=== PATIENT | female | born 1970 | race Hispanic/Latino ===

== ENCOUNTER 2022-01-28 | Inpatient (IN) | payer OTHER ==
[2022-01-28] VITALS: BP 101/68
[~2022-01-28] VITALS: Ht 157.5 cm; Wt 86.0 kg
[~2022-01-28] MED LIST: ALPRAZOLAM0.5 M1 PO; DULCOLAX10 MG RE; LINZESS72 MCG; LISINOP/HCTZ1 TA1 PO; MIRALAX17 GM; MORPHINE SUL15 MG PO; OXYCODONE10 M1 PO; [UNRECOGNIZED DRUG - OTHER] XX
[2022-01-28 04:20] VITALS: BP 129/87
[2022-01-28] MEDS ORDERED: FAMOTIDINE20 M1 PO (07:27)
[2022-01-28] MEDS ORDERED: OXYCODO-APAP1 TA2 PO (07:28)
[2022-01-28] MEDS ORDERED: LISINOPRIL10 MG PO (07:28)
[2022-01-28] MEDS ORDERED: DICYCLOMINE10 MG PO (07:29)
[2022-01-28] MEDS ORDERED: BACLOFEN10 MG PO (07:29)
[2022-01-28] MEDS ORDERED: ZOLPIDEM ER12.5 MG PO (07:30)
[2022-01-28 08:00] VITALS: BP 111/66
[2022-01-28 08:56] LABS: HEMATOCRIT 42.5 % (37.0-47.0); HEMOGLOBIN 13.9 g/dl (12.0-16.0); IMMATURE GRANULOCYTES 0.1 % (0.0-5.0); MEAN CELL VOLUME 97.9 fL CALC (80.0-100.0); MEAN CORPUSCULAR HGB CONC 32.7 g/dL CAL (32.0-36.0); NEUT# 3.88 thou/uL (2.00-7.15); RED BLOOD COUNT 4.34 mill/uL (4.20-5.60); RED CELL DISTRI WIDTH 12.2 % (11.5-15.5)
[2022-01-28 09:42] LABS: ALBUMIN 3.9 g/dL (3.2-5.0); ALKALINE PHOSPHATASE 70 u/l (38-126); AMYLASE 46 u/l (30-110); ANION GAP 9 (6-22 (CALC)); BILIRUBIN, TOTAL 0.7 mg/dL (0.0-1.4); BUN 18 mg/dL (7-17); BUN/CREATININE RATIO 28 (12-20 (CALC)); CARBON DIOXIDE 27 mmol/l (22-30); CHLORIDE 109 mmol/l (95-108); CREATININE 0.6 mg/dL (0.5-1.0); GFR > 60 ML/MIN (>=60 (CALC)); GFR FOR AFR.AMER. > 60 ML/MIN (>=60 (CALC)); LIPASE 53 u/l (23-300); POTASSIUM 4.2 mmol/l (3.5-5.1); SGOT/AST 22 u/l (14-36); SODIUM 141 mmol/l (137-146); TOTAL PROTEIN 6.7 g/dL (6.3-8.2)
[2022-01-28 14:25] VITALS: BP 136/68
[2022-01-28 19:15] VITALS: BP 110/68
[2022-01-29 04:39] VITALS: BP 107/58
[2022-01-29 05:17] LABS: HEMATOCRIT 38.2 % (37.0-47.0); HEMOGLOBIN 12.9 g/dl (12.0-16.0); IMMATURE GRANULOCYTES 0.1 % (0.0-5.0); MEAN CELL VOLUME 96.2 fL CALC (80.0-100.0); MEAN CORPUSCULAR HGB 32.5 pG CALC (26.0-32.0); MEAN CORPUSCULAR HGB CONC 33.8 g/dL CAL (32.0-36.0); NEUT# 3.1 thou/uL (2.00-7.15); RED BLOOD COUNT 3.97 mill/uL (4.20-5.60)
[2022-01-29 05:41] LABS: ANION GAP 9 (6-22 (CALC)); BUN 10 mg/dL (7-17); BUN/CREATININE RATIO 15 (12-20 (CALC)); CARBON DIOXIDE 26 mmol/l (22-30); CHLORIDE 109 mmol/l (95-108); CREATININE 0.6 mg/dL (0.5-1.0); GFR > 60 ML/MIN (>=60 (CALC)); GFR FOR AFR.AMER. > 60 ML/MIN (>=60 (CALC)); POTASSIUM 4.2 mmol/l (3.5-5.1); SODIUM 139 mmol/l (137-146)
[2022-01-29 06:00] VITALS: BP 133/76
[2022-01-29 08:01] VITALS: BP 112/61
[2022-01-29 19:10] VITALS: BP 118/69
[2022-01-30 05:22] LABS: HEMATOCRIT 39.8 % (37.0-47.0); HEMOGLOBIN 13.2 g/dl (12.0-16.0); IMMATURE GRANULOCYTES 0.2 % (0.0-5.0); MEAN CORPUSCULAR HGB 31.5 pG CALC (26.0-32.0); MEAN CORPUSCULAR HGB CONC 33.2 g/dL CAL (32.0-36.0); NEUT# 5.79 thou/uL (2.00-7.15); RED BLOOD COUNT 4.19 mill/uL (4.20-5.60); RED CELL DISTRI WIDTH 11.8 % (11.5-15.5)
[2022-01-30 05:48] VITALS: BP 123/72
[2022-01-30 05:48] LABS: ANION GAP 9 (6-22 (CALC)); BUN 6 mg/dL (7-17); BUN/CREATININE RATIO 12 (12-20 (CALC)); CARBON DIOXIDE 25 mmol/l (22-30); CHLORIDE 108 mmol/l (95-108); CREATININE 0.5 mg/dL (0.5-1.0); GFR > 60 ML/MIN (>=60 (CALC)); GFR FOR AFR.AMER. > 60 ML/MIN (>=60 (CALC)); MAGNESIUM 1.9 mg/dL (1.6-2.3); POTASSIUM 4.1 mmol/l (3.5-5.1); SODIUM 139 mmol/l (137-146)
[2022-01-30 07:18] VITALS: BP 116/63
[2022-01-30 08:00] VITALS: BP 116/63
[2022-01-30 14:25] VITALS: BP 104/52
[2022-01-30 18:54] VITALS: BP 104/54
[2022-01-31 03:36] VITALS: BP 120/74
[2022-01-31 06:26] LABS: HEMATOCRIT 38.6 % (37.0-47.0); HEMOGLOBIN 12.8 g/dl (12.0-16.0); MEAN CORPUSCULAR HGB 31.8 pG CALC (26.0-32.0); MEAN CORPUSCULAR HGB CONC 33.2 g/dL CAL (32.0-36.0); RED BLOOD COUNT 4.02 mill/uL (4.20-5.60)
[2022-01-31 06:45] LABS: ANION GAP 9 (6-22 (CALC)); BUN 9 mg/dL (7-17); BUN/CREATININE RATIO 15 (12-20 (CALC)); CARBON DIOXIDE 27 mmol/l (22-30); CHLORIDE 108 mmol/l (95-108); CREATININE 0.6 mg/dL (0.5-1.0); GFR > 60 ML/MIN (>=60 (CALC)); GFR FOR AFR.AMER. > 60 ML/MIN (>=60 (CALC)); MAGNESIUM 2.1 mg/dL (1.6-2.3); POTASSIUM 4.3 mmol/l (3.5-5.1); SODIUM 140 mmol/l (137-146)
[2022-01-31 07:39] VITALS: BP 135/71
[2022-01-31 08:36] VITALS: BP 135/71
== END 2022-01-31 13:52 | disposition home or self-care (01) | DRG 390 ==
LOC: MS2
PROVIDERS: Hospitalist; Internal Medicine; ADMIT Surgery; ATTEND Surgery
DX: K56.51 Intestinal adhesions [bands], with partial obstruction (principal); I10 Essential (primary) hypertension; F41.9 Anxiety disorder, unspecified; K58.9 Irritable bowel syndrome, unspecified; M54.9 Dorsalgia, unspecified; G89.29 Other chronic pain; Z79.891 Long term (current) use of opiate analgesic; Z85.850 Personal history of malignant neoplasm of thyroid
CPT/HCPCS: J1650; J2060; Q9967; S0164

== ENCOUNTER 2022-10-31 18:00 | Emergency (ER) | payer OTHER ==
[~2022-10-31] VITALS: Ht 157.5 cm; Wt 80.1 kg
[~2022-10-31 18:00] MED LIST changes: +BACLOFEN10 MG PO; +DICYCLOMINE10 MG PO; +FAMOTIDINE20 M1 PO; +LISINOPRIL10 MG PO; +OXYCODO-APAP1 TA2 PO; +ZOLPIDEM ER12.5 MG PO
[2022-10-31] MEDS ORDERED: MICROZIDE PO (19:01)
[2022-10-31] MEDS ORDERED: LEVOTHYROXIN125 MCG PO (19:02)
[2022-10-31 20:20] LABS: BASO% 0.2 % (0-3); EOS% 0.7 % (0-8); HEMATOCRIT 42.5 % (37.0-47.0); HEMOGLOBIN 14.3 g/dl (12.0-16.0); IMMATURE GRANULOCYTES 0.3 % (0.0-5.0); LYMPH% 27.4 % (15-41); MEAN CELL VOLUME 90.8 fL CALC (80.0-100.0); MEAN CORPUSCULAR HGB 30.6 pG CALC (26.0-32.0); MEAN CORPUSCULAR HGB CONC 33.6 g/dL CAL (32.0-36.0); MONO% 6.3 % (2-13); NEUT# 6.82 thou/uL (2.00-7.15); NEUT% 65.1 % (42-76); RED BLOOD COUNT 4.68 mill/uL (4.20-5.60); RED CELL DISTRI WIDTH 11.8 % (11.5-15.5)
[2022-10-31 20:21] LABS: URINE BILIRUBIN - DIPSTICK NEGATIVE (NEGATIVE); URINE BLOOD DIPSTICK NEGATIVE (NEGATIVE); URINE COLOR YELLOW; URINE GLUCOSE - DIPSTICK NEGATIVE (NEGATIVE); URINE KETONE NEGATIVE (NEGATIVE); URINE LEUK ESTERASE NEGATIVE (NEGATIVE); URINE PROTEIN - DIPSTICK NEGATIVE (NEG-TRACE); URINE SPECIFIC GRAVITY 1.015; URINE UROBILINOGEN - DIPSTICK 0.2 E.U./dL (0.2)
[2022-10-31 20:22] LABS: URINE NITRITE - DIPSTICK NEGATIVE (Negative)
[2022-10-31 20:36] LABS: ALBUMIN 4.6 g/dL (3.2-5.0); ALKALINE PHOSPHATASE 121 u/l (38-126); BUN 23 mg/dL (7-17); BUN/CREATININE RATIO 30 (12-20 (CALC)); CARBON DIOXIDE 28 mmol/l (22-30); CHLORIDE 98 mmol/l (95-108); CREATININE 0.8 mg/dL (0.5-1.0); GFR FOR AFR.AMER. > 60 ML/MIN (>=60 (CALC)); GFR OTHER RACES > 60 ML/MIN (>=60 (CALC)); SGOT/AST 24 u/l (14-36); TOTAL PROTEIN 7.8 g/dL (6.3-8.2)
[2022-10-31 20:42] LABS: ANION GAP 10 (6-22 (CALC)); BILIRUBIN, TOTAL 0.3 mg/dL (0.02-1.3); SODIUM 132 mmol/l (137-146)
[2022-10-31 21:30] VITALS: BP 114/63
[2022-10-31 22:06] LABS: TSH, 3RD GENERATION < 0.02 uIU/mL (0.47 - 4.68)
[2022-10-31 22:46] VITALS: BP 114/63
== END 2022-10-31 22:51 | disposition home or self-care (01) | DRG 948 ==
LOC: ED 18:00
PROVIDERS: Emergency Medicine; Family Medicine
DX: R53.1 Weakness (principal); Z20.822 Contact with and (suspected) exposure to COVID-19; I10 Essential (primary) hypertension; Z85.850 Personal history of malignant neoplasm of thyroid

== ENCOUNTER 2024-04-11 10:45 | Emergency (ER) | payer OTHER ==
[2024-04-11] VITALS (12 sets, daily range): BP systolic 94–107; BP diastolic 55–67
[~2024-04-11] VITALS: Ht 160 cm; Wt 81.8 kg
[~2024-04-11 10:45] MED LIST changes: +ALL DAY10 MG PO; +AMBIEN10 MG PO; +CALCIUM/D3600 MG PO; +CYMBALTA60 MG PO; +FAMOTIDINE40 M1 PO; +FLEXERIL5 M1 PO; +LEVOTHYROXIN125 MCG PO; +LEVOTHYROXINE PO; +LIDOCAINE51; +LINZESS290 MCG PO; +LISINOPRIL PO; +METHOCARBAMOL PO; +METHOCARBAMOL500 MG PO; +MICROZIDE PO; +OMEPRAZOLE DR40 MG PO; +OXYCODONE5 M1 PO; +PANTOPRAZOLE SO40 M3 PO; +PROMETHAZINE HY25 M1 PO; +XANAX XR1 MG PO
[2024-04-11] MEDS ORDERED: KETOROLAC TROMETHAMINE 30 MG/ML SDV IV STA (11:33)
[2024-04-11] MEDS ORDERED: ONDANSETRON HCl 4 MG/2 ML SDV IV STA (11:33)
[2024-04-11] MEDS ORDERED: MORPHINE SULFATE 4 MG/ML VIAL IV STA (11:33)
[2024-04-11 12:10] LABS: URINE BILIRUBIN - DIPSTICK Negative (NEGATIVE); URINE BLOOD DIPSTICK Negative (NEGATIVE); URINE GLUCOSE - DIPSTICK Negative (NEGATIVE); URINE KETONE Trace mg/dL (NEGATIVE); URINE LEUK ESTERASE Negative (NEGATIVE); URINE NITRITE - DIPSTICK Negative (Negative); URINE PH 5.5 (4.5-8.0); URINE PROTEIN - DIPSTICK Negative (NEG-TRACE); URINE UROBILINOGEN - DIPSTICK 0.2 E.U./dL (0.2)
[2024-04-11 12:12] LABS: URINE COLOR Yellow
[2024-04-11 12:13] LABS: BASO% 0.2 % (0-3); EOS% 2.1 % (0-8); HEMATOCRIT 41.3 % (37.0-47.0); HEMOGLOBIN 13.6 g/dl (12.0-16.0); IMMATURE GRANULOCYTES 0.1 % (0.0-5.0); LYMPH% 26.1 % (15-41); MEAN CELL VOLUME 92.2 fL CALC (80.0-100.0); MEAN CORPUSCULAR HGB 30.4 pG CALC (26.0-32.0); MEAN CORPUSCULAR HGB CONC 32.9 g/dL CAL (32.0-36.0); MONO% 8.6 % (2-13); NEUT# 5.46 thou/uL (2.00-7.15); NEUT% 62.9 % (42-76); RED BLOOD COUNT 4.48 mill/uL (4.20-5.60); RED CELL DISTRI WIDTH 12.1 % (11.5-15.5)
[2024-04-11 12:35] LABS: ALBUMIN 4.4 g/dL (3.2-5.0); BILIRUBIN, TOTAL 0.7 mg/dL (0.02-1.3); CREATININE 0.7 mg/dL (0.5-1.0); POTASSIUM 3.9 mmol/l (3.5-5.1); TOTAL PROTEIN 7.6 g/dL (6.3-8.2)
[2024-04-11] MEDS ORDERED: MIRALAX17 GM PO (13:07)
== END 2024-04-11 14:09 | disposition home or self-care (01) | DRG 392 ==
LOC: ED 10:45
PROVIDERS: Emergency Medicine
DX: K59.00 Constipation, unspecified (principal); I10 Essential (primary) hypertension